=== PATIENT | female | born 1980 ===

== ENCOUNTER 2019-02-02 17:53 | Emergency (ER) | payer OTHER ==
--- NOTE | 2019-02-02 18:03 | Emergency Department Report ---
Blank Doc - Documentation Documentation: This is a 38-year-old female that presents with generalized pain. Patient conner maldonado has sickle cell and symptoms are similar to crisis. This initial assessment/diagnostic orders/clinical plan/treatment(s) is/are subject to change based on patient's health status, clinical progression and re- assessment by fellow clinical providers in the ED. Further treatment and workup at subsequent clinical providers discretion. Patient/guardians urged not to elope from the ED as their condition may be serious if not clinically assessed and managed. Initial orders include: 1- Patient sent to MAIN ED for further evaluation and treatment 2- labs 3- UA
[2019-02-02 18:27] LABS: Hematocrit 22.6 % (30.3-42.9); Hemoglobin 8.1 gm/dl (10.1-14.3); Mean Corpuscular HGB Conc 36 % (30-34); Platelet Count 185 K/mm3 (140-440); Red Blood Count 2.03 M/mm3 (3.65-5.03)
[2019-02-02 18:28] LABS: Mean Corpuscular Volume 112 fl (79-97); Red Cell Distribution Width 20.7 % (13.2-15.2)
[2019-02-02 18:37] LABS: BUN/Creatinine Ratio 27; Blood Urea Nitrogen 8 mg/dL (7-17); Calcium 8.6 mg/dL (8.4-10.2); Hemolysis Index 13
[2019-02-02 19:00] LABS: Basophils % (Manual) 0 % (0.0-1.8); Total Cells Counted 100
[2019-02-02] MEDS ORDERED: TORADOL IV ONE (20:46)
[2019-02-02] MEDS ORDERED: NACL 0.9% 1000 ML 1,000 ML IV ONE (20:46)
[2019-02-02] MEDS ORDERED: DILAUDID IV ONE ×2 (20:47→23:25)
--- NOTE | 2019-02-02 20:51 | Emergency Department Report ---
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 Patient reports generalized pain, especially in the legs, knees, hips. Also reports associated headache and mildly blurred vision. Patient states these symptoms are typical of her sickle cell crises. She says she takes Tylenol at home for mild pain, and Percocet for severe pain. Patient states he does not currently have a PCP or desulfurizer machine. Patient states that presently she contracted hepatitis C from one of her blood transfusions. Patient stated she has had multiple transfusions, the last of which was approximately 5 months ago. -: days(s) (1) Location: head, left, right, lower extremity Severity scale (0 -10): 10 Quality: aching Consistency: constant Improves with: none Associated Symptoms: headaches. denies: chest pain, cough, fever/chills, nausea/vomiting, shortness of breath - Related Data Previous Rx's Medication Instructions Recorded Last Taken Type Oxycodone HCl/Acetaminophen 1 each PO Q6HR PRN #10 tablet 02/03/19 Unknown Rx [Percocet 7.5/325 mg] Allergies Allergy/AdvReac Type Severity Reaction Status Date / Time No Known Allergies Allergy Unverified 02/02/19 18:01 ED Review of Systems ROS: Stated complaint: HEADACHE/EYES/ARMS Other details as noted in HPI Comment: All other systems reviewed and negative Constitutional: denies: chills, fever Respiratory: denies: shortness of breath Cardiovascular: denies: chest pain Gastrointestinal: denies: nausea, vomiting Musculoskeletal: arthralgia Neurological: headache ED Past Medical Hx - Past Medical History Hx Sickle Cell Disease: Yes Additional medical history: Hep C - Social History Smoking Status: Current Every Day Smoker Substance Use Type: Alcohol - Medications Home Medications: Home Medications Medication Instructions Recorded Confirmed Last Taken Type Oxycodone HCl/Acetaminophen 1 each PO Q6HR PRN #10 tablet 02/03/19 Unknown Rx [Percocet 7.5/325 mg] ED Physical Exam - General Limitations: Language Barrier General appearance: alert, in no apparent distress - Head Head exam: Present: atraumatic, normocephalic - Eye Eye exam: Present: normal appearance, scleral icterus (minimal) - ENT ENT exam: Present: mucous membranes moist - Neck Neck exam: Present: normal inspection - Respiratory Respiratory exam: Present: normal lung sounds bilaterally. Absent: respiratory distress - Cardiovascular Cardiovascular Exam: Present: regular rate, normal rhythm - GI/Abdominal GI/Abdominal exam: Present: soft. Absent: distended, tenderness - Extremities Exam Extremities exam: Present: normal inspection. Absent: pedal edema - Neurological Exam Neurological exam: Present: alert, oriented X3 - Psychiatric Psychiatric exam: Present: normal affect, normal mood - Skin Skin exam: Present: warm, dry, intact, normal color ED Course Vital Signs 02/02/19 02/02/19 02/02/19 18:02 21:22 21:48 Temperature 98.4 F 97.2 F L Pulse Rate 74 94 H Respiratory 16 14 19 Rate Blood Pressure 132/50 Blood Pressure 129/72 [Left] O2 Sat by Pulse 98 100 Oximetry 02/02/19 02/02/19 02/02/19 21:58 22:00 22:18 Temperature Pulse Rate 70 Respiratory 19 23 20 Rate Blood Pressure 106/45 Blood Pressure [Left] O2 Sat by Pulse 98 Oximetry 02/02/19 02/02/19 22:28 23:31 Temperature Pulse Rate Respiratory 20 20 Rate Blood Pressure Blood Pressure [Left] O2 Sat by Pulse Oximetry ED Medical Decision Making - Lab Data Result diagrams: 02/02/19 18:08 02/02/19 18:08 - Medical Decision Making - pt reports pain due to sickle cell - dilaudid given x 2, pain improved - Hb 8.1, no need for transfusion at this time - vitals normal - will give rx for percocet - advised hematology follow-up - Differential Diagnosis sickle cell crisis, anemia Critical care attestation.: If time is entered above; I have spent that time in minutes in the direct care of this critically ill patient, excluding procedure time. ED Disposition Clinical Impression: Sickle cell anemia with crisis Disposition: DC-01 TO HOME OR SELFCARE Is pt being admited?: No Condition: Stable Instructions: Sickle Cell Crisis (ED) Prescriptions: Oxycodone HCl/Acetaminophen [Percocet 7.5/325 mg] 1 each PO Q6HR PRN #10 tablet PRN Reason: Pain Referrals: ISA EMERY MD [Referring] - 3-5 Days KINSEY TURNER DO [Staff Physician] - 3-5 Days Time of Disposition: 23:35 Print Language: WELSH
[2019-02-02] MEDS ORDERED: DILAUDID ONE (23:19)
[2019-02-02] MEDS ORDERED: BENADRYL PO ONE ×2 (23:20→23:28)
[2019-02-02 23:25] VITALS: BP 106/45
[2019-02-02 23:45] LABS: Bilirubin,Urine NEG (Negative); Blood,Urine NEG (Negative); Color,Urine Yellow (Yellow); Protein,Urine <15 mg/dL mg/dL (Negative); WBC,Urine < 1.0 /HPF (0.0-6.0)
[2019-02-08 08:40] LABS: Anisocytosis 1+; Hypochromasia Few; Macrocytosis 1+; Sickle Cells 1+
[2019-02-08 08:41] LABS: Target Cells 1+
== END 2019-02-03 01:09 | disposition home or self-care (01) ==
LOC: ED 17:53
DX: D57.00 Hb-SS disease with crisis, unspecified (principal); F17.200 Nicotine dependence, unspecified, uncomplicated; Z86.19 Personal history of other infectious and parasitic diseases
CPT/HCPCS: 36415; 80048; 81001; 84703; 85007; 85025; 85045; 96374; 96375; 96376; 99283; J1170; J1885; J7030

== ENCOUNTER 2019-02-07 23:27 | Observation (INO) | payer SELFPAY ==
[2019-02-08] MEDS ORDERED: TORADOL IV ONE (04:42)
[2019-02-08] MEDS ORDERED: ZOFRAN IV ONE (04:42)
[2019-02-08] MEDS ORDERED: DILAUDID IV ONE (04:42)
--- NOTE | 2019-02-08 04:42 | Emergency Department Report ---
Blank Doc - Documentation Documentation: Patient medically screened. History of sickle cell unknown type presents with pain secondary to crisis. Patient complains of pain to bilateral knees, ankles, wrists, and head. Pain is rated 10/10 in intensity and constant. She was here on February 02 with pain secondary to crisis and prescribed Percocet 7.5/325 mg. Her pain has continued since recent ER visit but is unbearable and she has run out of pain medication since she was only prescribed 10 tablets. 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 She denies fever, cough, chest pain, or shortness of breath. CBC, CMP, reticulocyte count, test ordered IV fluid, Dilaudid, and Zofran ordered
[2019-02-08 04:47] LABS: Hematocrit 23.4 % (30.3-42.9); Hemoglobin 8.1 gm/dl (10.1-14.3); Mean Corpuscular HGB Conc 35 % (30-34); Platelet Count 192 K/mm3 (140-440); Red Blood Count 2.03 M/mm3 (3.65-5.03)
[2019-02-08 04:51] LABS: Mean Corpuscular Volume 116 fl (79-97); Red Cell Distribution Width 22.2 % (13.2-15.2)
[2019-02-08] MEDS ORDERED: D5NS 0.2% 1,000 ML IV SCH (05:00)
[2019-02-08] MEDS ORDERED: BENADRYL IV ONE (05:10)
[2019-02-08] MEDS ORDERED: BENADRYL ONE (05:10)
[2019-02-08 05:14] LABS: Alanine Aminotransferase 68 units/L (7-56); Albumin 3.7 g/dL (3.9-5); BUN/Creatinine Ratio 30; Blood Urea Nitrogen 12 mg/dL (7-17); Calcium 8.5 mg/dL (8.4-10.2); Hemolysis Index 52
[2019-02-08] MEDS ORDERED: NACL 0.9% 1000 ML 1,000 ML IV ONE ×2 (06:35→07:46)
--- NOTE | 2019-02-08 06:41 | Emergency Department Report ---
HPI - General Chief Complaint: Sickle Cell Crisis Time Seen by Provider: 02/08/19 06:04 - HPI HPI: 38-year-old female presents to the emergency department with complaint of a sickle cell pain crisis that she says is going on in both of her legs, a round the knees. The patient also has some mild epigastric and left-sided abdominal pain. The patient was seen for this here 1 week ago and was discharged home with some pain medication and a referral for primary care and hematology. She is not yet been able to make an appointment. She says that she has been taking the Percocet without much relief. She denies any fever, chest pain, shortness of breath. She has a history of hepatitis C secondary to an infected blood transfusion in the past. ED Past Medical Hx - Past Medical History Hx Sickle Cell Disease: Yes Additional medical history: Hep C - Social History Smoking Status: Current Some Day Smoker Substance Use Type: None - Medications Home Medications: Home Medications Medication Instructions Recorded Confirmed Last Taken Type Oxycodone HCl/Acetaminophen 1 each PO Q6HR PRN #10 tablet 02/03/19 02/08/19 Unknown Rx [Percocet 7.5/325 mg] RX: Folic Acid [Folvite] 1 mg PO QDAY 02/08/19 02/08/19 Unknown History ED Review of Systems ROS: Stated complaint: SICKLE CELL CRISIS Other details as noted in HPI Comment: All other systems reviewed and negative Constitutional: denies: chills, fever Eyes: denies: eye pain, vision change ENT: denies: ear pain, throat pain Respiratory: denies: cough, shortness of breath Cardiovascular: denies: chest pain, palpitations Gastrointestinal: abdominal pain. denies: nausea, vomiting Genitourinary: denies: dysuria, discharge Musculoskeletal: arthralgia, myalgia. denies: joint swelling Skin: denies: rash, lesions Neurological: denies: headache, weakness Physical Exam - Physical Exam Vital Signs: Vital Signs 02/08/19 02/08/19 02/08/19 04:03 04:15 05:00 Temperature 98.1 F Pulse Rate 72 61 69 Respiratory 16 13 10 L Rate Blood Pressure 102/46 99/38 103/36 Blood Pressure 99/38 [Left] O2 Sat by Pulse 99 100 97 Oximetry 02/08/19 05:04 Temperature Pulse Rate Respiratory 20 Rate Blood Pressure Blood Pressure [Left] O2 Sat by Pulse Oximetry Physical Exam: GENERAL: The patient is well-developed well-nourished. HEENT: Normocephalic. Atraumatic. Patient has moist mucous membranes. EYES: Extraocular motions are intact. NECK: Supple. Trachea is midline. CHEST/LUNGS: Clear to auscultation. There is no respiratory distress noted. HEART/CARDIOVASCULAR: Regular. There is no tachycardia. There is no obvious murmur. ABDOMEN: Abdomen is soft. There is epigastric and left upper quadrant abdominal tenderness to palpation. No guarding. Patient has normal bowel sounds. There is no abdominal distention. SKIN: Skin is warm and dry. NEURO: The patient is awake, alert, and oriented. The patient is cooperative. The patient has no focal neurologic deficits. The patient has normal speech. MUSCULOSKELETAL: There is no tenderness or deformity. There is no limitation r marilu of motion. There is no evidence of acute injury. ED Course Vital Signs 02/08/19 02/08/19 02/08/19 04:03 04:15 05:00 Temperature 98.1 F Pulse Rate 72 61 69 Respiratory 16 13 10 L Rate Blood Pressure 102/46 99/38 103/36 Blood Pressure 99/38 [Left] O2 Sat by Pulse 99 100 97 Oximetry 02/08/19 05:04 Temperature Pulse Rate Respiratory 20 Rate Blood Pressure Blood Pressure [Left] O2 Sat by Pulse Oximetry ED Medical Decision Making - Lab Data Result diagrams: 02/08/19 04:36 02/08/19 04:36 - Radiology Data Radiology results: report reviewed PROCEDURE: US ABDOMEN LIMITED TECHNIQUE: Grayscale and color Doppler ultrasound evaluation of the right upper quadrant HISTORY: abd pain, elevated bili and LFTs, hx of Hep C COMPARISONS: None FINDINGS: Grayscale and color Doppler ultrasound evaluation of the right upper abdomen Heterogeneous echotexture of the liver with mildly nodular contour. A focal echogenic lesion is present in the posterior right hepatic lobe measuring 2 x 1.3 x 1.5 cm. No intra or extra hepatic biliary ductal dilatation. The common duct measures approximately 5 millimeters in caliber. The gallbladder is incompletely distended and contains multiple echogenic subcentimeter foci with mixed posterior acoustic enhancement characteristics. Layering sludge may also be present. Gallbladder wall measures approximately 2 millimeters in thickness. No pericholecystic edema. Imaged portion of the pancreatic head is sonographically unremarkable. The remainder of the pancreas is not well seen secondary to overlying bowel gas. No abdominal ascites or free fluid in Rosales's pouch. The right kidney measures up to 10.3 cm in length and is without hydronephrosis or echogenic shadowing foci to suggest nephrolithiasis. IMPRESSION: Heterogeneous liver parenchyma and nodular contour are likely related to reported underlying hepatitis. A 2 cm echogenic lesion in the posterior right liver may be a hemangioma but is incompletely characterized on this exam. Follow-up multiphase liver CT or MRI recommended for additional evaluation. Layering sludge and/or subcentimeter stones in the gallbladder without additional findings of acute cholecystitis. This document is electronically signed by Karla Steele MD., February 08 2019 07:32:01 AM ET Transcribed By: DENITA Dictated By: KARLA STEELE MD Electronically Authenticated By: KARLA STEELE MD Signed Date/Time: 02/08/19 0734 - Medical Decision Making This patient presents to the emergency department with complaint of pain to the bilateral lower extremities consistent with her sickle cell pain crisis. She also has complaints of epigastric and left upper quadrant pain. She has a history of hepatitis C, along with her sickle cell. Her labs show anemia with a hemoglobin of 8.1, an elevated reticulocyte count of 16. She some elevated LFTs consistent with her hepatitis C. Ultrasound also appears consistent with her history of hepatitis C and otherwise does not show any acute process. The patient was given multiple liters of IV fluid resuscitation and she has had some transient hypotension. The patient was here about a week ago for the same sickle cell pain crisis and does not appear to have improved. For all these reasons, the patient will be admitted to the hospital for further evaluation and treatment and was accepted for admission by the hospitalist service. - Differential Diagnosis sickle cell anemia, hepatitis, pancreatitis, GERD Critical Care Time: No Critical care attestation.: If time is entered above; I have spent that time in minutes in the direct care of this critically ill patient, excluding procedure time. ED Disposition Clinical Impression: Sickle cell anemia with crisis Hypotension Qualifiers: Hypotension type: unspecified hypotension type Qualified Code(s): I95.9 - Hypotension, unspecified Abdominal pain Qualifiers: Abdominal location: left upper quadrant Qualified Code(s): R10.12 - Left upper quadrant pain Disposition: -09 OP ADMIT IP TO THIS HOSP Is pt being admited?: Yes Condition: Fair Time of Disposition: 10:21
--- NOTE | 2019-02-08 07:34 | Ultrasound Report ---
PROCEDURE: US ABDOMEN LIMITED TECHNIQUE: Grayscale and color Doppler ultrasound evaluation of the right upper quadrant HISTORY: abd pain, elevated bili and LFTs, hx of Hep C COMPARISONS: None FINDINGS: Grayscale and color Doppler ultrasound evaluation of the right upper abdomen Heterogeneous echotexture of the liver with mildly nodular contour. A focal echogenic lesion is prese nt in the posterior right hepatic lobe measuring 2 x 1.3 x 1.5 cm. No intra or extra hepatic biliary ductal dilatation. The common duct measures approximately 5 millimeters in caliber. The gallbladder is incompletely distended and contains multiple echogenic subcentimeter foci with mix ed posterior acoustic enhancement characteristics. Layering sludge may also be present. Gallbladder w all measures approximately 2 millimeters in thickness. No pericholecystic edema. Imaged portion of the pancreatic head is sonographically unremarkable. The remainder of the pancreas is not well seen secondary to overlying bowel gas. No abdominal ascites or free fluid in Rosales's pouch. The right kidney measures up to 10.3 cm in l ength and is without hydronephrosis or echogenic shadowing foci to suggest nephrolithiasis. IMPRESSION: Heterogeneous liver parenchyma and nodular contour are likely related to reported underlying hepatiti s. A 2 cm echogenic lesion in the posterior right liver may be a hemangioma but is incompletely kiran cterized on this exam. Follow-up multiphase liver CT or MRI recommended for additional evaluation. Layering sludge and/or subcentimeter stones in the gallbladder without additional findings of acute c holecystitis. This document is electronically signed by Pilo Perez MD., February 08 2019 07:32:01 AM ET
[2019-02-08 08:24] LABS: Total Cells Counted 100
[2019-02-08 08:33] LABS: Anisocytosis 1+; Poikilocytosis 2+; Sickle Cells 2+; Target Cells Few
[2019-02-08 08:35] LABS: Platelet Estimate Consistent w Auto
--- NOTE | 2019-02-08 11:54 | History and Physical Report ---
History of Present Illness Date of examination: 02/08/19 Date of admission: 02/08/19 10:22 Chief complaint: Generalized body aches History of present illness: 38 year old female with past medical history significant for hepatitis C, sickle cell anemia presented to the emergency department complaining of generalized body aches for one week. Patient said the pain is worse in her joints but denied any chest pain, dysuria, fever, chills, cough. Patient was presented to emergency department a week ago and Percocet was given and discharged home. Patient didn't show any improvement and presented back again this morning. Patient said she has history of sickle cell anemia and had many blood transfusions and was taking folic acid at home but is now hydroxyurea. Her cousins have sickle cell anemia. Patient is from [place] REVIEW OF SYSTEMS: GENERAL: no weight change, no fatigue, no fever HEAD: no head ache EYES: no blurry vision, no acute visual loss EARS: no hearing loss, no discharge, no earache NOSE: no stuffiness, no sneezing, no discharge MOUTH, THROAT AND NECK: no bleeding gums, no sore throat, no swollen neck CARDIAC: no palpitations, no dyspnea on exertion, no orthopnea, no PND, no edema, no chest pain RESPIRATORY: no shortness of breath, no wheeze, no cough, no sputum, no hemoptysis, no asthma GI: no decreased appetite, no nausea, no vomiting, no dysphagia, no diarrhea, no constipation, no abdominal pain URINARY: no change in frequency, no urgency, no polyuria, no hematuria, no incontinence MUSCULOSKELETAL: no muscle weakness, no pain, no joint stiffness NEUROLOGIC: no loss of sensation/numbness, no tingling, no tremors, no weakness/paralysis HEMATOLOGIC: no easy bruising SKIN: no rashes ENDOCRINE: no heat/cold intolerance, no polyuria, no polydipsia, no thyroid problems, no diabetes PSYCHIATRIC: no anxiety, no depression, no suicidal ideations Past History Past Medical History: other (hepatitis C, sickle cell anemia) Past Surgical History: (2) Social history: smoking (1 cigarettes a day), alcohol abuse (occasionally), full code. denies: prescription drug abuse, IV drug use Family history: other (sickle cell in her cousins) Medications and Allergies Allergies Allergy/AdvReac Type Severity Reaction Status Date / Time No Known Allergies Allergy Unverified 02/02/19 18:01 Home Medications Medication Instructions Recorded Confirmed Last Taken Type Oxycodone HCl/Acetaminophen 1 each PO Q6HR PRN #10 tablet 02/03/19 02/08/19 Unknown Rx [Percocet 7.5/325 mg] Folic Acid [Folvite] 1 mg PO QDAY 02/08/19 02/08/19 Unknown History Active Meds: Active Medications Hydromorphone HCl (Dilaudid) 1 mg IV Q4H PRN PRN Reason: Pain , Severe (7-10) Dextrose/Sodium Chloride (D5ns 0.2%) 1,000 mls @ 250 mls/hr IV DIRECT COLBY Last Admin: 02/08/19 04:50 Dose: 250 mls/hr Documented by: Sodium Chloride (Nacl 0.9% 1000 Ml) 1,000 mls @ 999 mls/hr IV DIRECT COLBY Sodium Chloride (Nacl 0.45% 1000 Ml) 1,000 mls @ 100 mls/hr IV DIRECT COLBY Exam - Physical Exam Narrative exam: Not in cardiopulmonary distress. The patient appeared well nourished and normally developed. Vital signs as documented. Head exam is unremarkable. No scleral icterus . Neck is without jugular venous distension, thyromegaly, or carotid bruits. Lungs are clear to auscultation. Cardiac exam reveals regular rate and Rhythm. First and second heart sounds normal. No murmurs, rubs or gallops. Abdominal exam reveals normal bowel sounds, no masses, no organomegaly and no aortic enlargement. Extremities are nonedematous and both femoral and pedal pulses are normal. 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 No focal weakness. - Constitutional Vitals: Temp Pulse Resp BP Pulse Ox 98.1 F 63 13 87/38 92 02/08/19 04:15 02/08/19 11:00 02/08/19 11:00 02/08/19 11:00 02/08/19 11:00 Results - Labs CBC & Chem 7: 02/08/19 04:36 02/08/19 04:36 Labs: Laboratory Last Values WBC 9.3 K/mm3 (4.5-11.0) 02/08/19 04:36 RBC 2.03 M/mm3 (3.65-5.03) L 02/08/19 04:36 Hgb 8.1 gm/dl (10.1-14.3) L 02/08/19 04:36 Hct 23.4 % (30.3-42.9) L 02/08/19 04:36 MCV 116 fl (79-97) H 02/08/19 04:36 MCH 40 pg (28-32) H 02/08/19 04:36 MCHC 35 % (30-34) H 02/08/19 04:36 RDW 22.2 % (13.2-15.2) H 02/08/19 04:36 Plt Count 192 K/mm3 (140-440) 02/08/19 04:36 Lymph # Supervisor Wet End 02/08/19 04:36 Add Manual Diff Complete 02/08/19 04:36 Total Counted 100 02/08/19 04:36 Seg Neutrophils % Supervisor Wet End 02/08/19 04:36 Seg Neuts % (Manual) 35.0 % (40.0-70.0) L 02/08/19 04:36 Band Neutrophils % 0 % 02/08/19 04:36 Lymphocytes % (Manual) 54.0 % (13.4-35.0) H 02/08/19 04:36 Reactive Lymphs % (Man) 0 % 02/08/19 04:36 Monocytes % (Manual) 6.0 % (0.0-7.3) 02/08/19 04:36 Eosinophils % (Manual) 4.0 % (0.0-4.3) 02/08/19 04:36 Basophils % (Manual) 1.0 % (0.0-1.8) 02/08/19 04:36 Metamyelocytes % 0 % 02/08/19 04:36 Myelocytes % 0 % 02/08/19 04:36 Promyelocytes % 0 % 02/08/19 04:36 Blast Cells % 0 % 02/08/19 04:36 Nucleated RBC % 14.0 % (0.0-0.9) H 02/08/19 04:36 Seg Neutrophils # Man 3.3 K/mm3 (1.8-7.7) 02/08/19 04:36 Band Neutrophils # 0.0 K/mm3 02/08/19 04:36 Lymphocytes # (Manual) 5.0 K/mm3 (1.2-5.4) 02/08/19 04:36 Abs React Lymphs (Man) 0.0 K/mm3 02/08/19 04:36 Monocytes # (Manual) 0.6 K/mm3 (0.0-0.8) 02/08/19 04:36 Eosinophils # (Manual) 0.4 K/mm3 (0.0-0.4) 02/08/19 04:36 Basophils # (Manual) 0.1 K/mm3 (0.0-0.1) 02/08/19 04:36 Metamyelocytes # 0.0 K/mm3 02/08/19 04:36 Myelocytes # 0.0 K/mm3 02/08/19 04:36 Promyelocytes # 0.0 K/mm3 02/08/19 04:36 Blast Cells # 0.0 K/mm3 02/08/19 04:36 WBC Morphology Not Reportable 02/08/19 04:36 Hypersegmented Neuts Not Reportable 02/08/19 04:36 Hyposegmented Neuts Not Reportable 02/08/19 04:36 Hypogranular Neuts Not Reportable 02/08/19 04:36 Smudge Cells Not Reportable 02/08/19 04:36 Toxic Granulation Not Reportable 02/08/19 04:36 Toxic Vacuolation Not Reportable 02/08/19 04:36 Dohle Bodies Not Reportable 02/08/19 04:36 Pelger-Huet Anomaly Not Reportable 02/08/19 04:36 Milo Rods Not Reportable 02/08/19 04:36 Platelet Estimate Consistent w auto 02/08/19 04:36 Clumped Platelets Not Reportable 02/08/19 04:36 Plt Clumps, EDTA Not Reportable 02/08/19 04:36 Large Platelets Not Reportable 02/08/19 04:36 Giant Platelets Not Reportable 02/08/19 04:36 Platelet Satelliting Not Reportable 02/08/19 04:36 Plt Morphology Comment Not Reportable 02/08/19 04:36 RBC Morphology Not Reportable 02/08/19 04:36 Dimorphic RBCs Not Reportable 02/08/19 04:36 Polychromasia 2+ 02/08/19 04:36 Hypochromasia Not Reportable 02/08/19 04:36 Poikilocytosis 2+ 02/08/19 04:36 Anisocytosis 1+ 02/08/19 04:36 Microcytosis Rare 02/08/19 04:36 Macrocytosis Not Reportable 02/08/19 04:36 Spherocytes Not Reportable 02/08/19 04:36 Pappenheimer Bodies Not Reportable 02/08/19 04:36 Sickle Cells 2+ 02/08/19 04:36 Target Cells Few 02/08/19 04:36 Tear Drop Cells Not Reportable 02/08/19 04:36 Ovalocytes Not Reportable 02/08/19 04:36 Helmet Cells Not Reportable 02/08/19 04:36 [place] Bodies Not Reportable 02/08/19 04:36 [place] Rings Not Reportable 02/08/19 04:36 [place] Cells Not Reportable 02/08/19 04:36 Bite Cells Not Reportable 02/08/19 04:36 Crenated Cell Not Reportable 02/08/19 04:36 Elliptocytes Not Reportable 02/08/19 04:36 Acanthocytes (Spur) Not Reportable 02/08/19 04:36 Rouleaux Not Reportable 02/08/19 04:36 Hemoglobin C Crystals Not Reportable 02/08/19 04:36 Schistocytes Not Reportable 02/08/19 04:36 Malaria parasites Not Reportable 02/08/19 04:36 Percent Retic 16.49 % (0.78-2.58) H 02/08/19 04:36 Sacha Bodies Not Reportable 02/08/19 04:36 Hem Pathologist Commnt No 02/08/19 04:36 Sodium 136 mmol/L (137-145) L 02/08/19 04:36 Potassium 4.7 mmol/L (3.6-5.0) 02/08/19 04:36 Chloride 104.7 mmol/L (98-107) 02/08/19 04:36 Carbon Dioxide 20 mmol/L (22-30) L 02/08/19 04:36 Anion Gap 16 mmol/L 02/08/19 04:36 BUN 12 mg/dL (7-17) 02/08/19 04:36 Creatinine 0.4 mg/dL (0.7-1.2) L 02/08/19 04:36 Estimated GFR > 60 ml/min 02/08/19 04:36 BUN/Creatinine Ratio 30 % 02/08/19 04:36 Glucose 90 mg/dL (65-100) 02/08/19 04:36 Calcium 8.5 mg/dL (8.4-10.2) 02/08/19 04:36 Total Bilirubin 2.70 mg/dL (0.1-1.2) H 02/08/19 04:36 AST 127 units/L (5-40) H 02/08/19 04:36 ALT 68 units/L (7-56) H 02/08/19 04:36 Alkaline Phosphatase 138 units/L (35-129) H 02/08/19 04:36 Troponin T < 0.010 ng/mL (0.00-0.029) 02/08/19 09:34 Total Protein 7.0 g/dL (6.3-8.2) 02/08/19 04:36 Albumin 3.7 g/dL (3.9-5) L 02/08/19 04:36 Albumin/Globulin Ratio 1.1 % 02/08/19 04:36 HCG, Qual Negative (Negative) 02/08/19 04:36 - Imaging and Cardiology EKG: image reviewed (no ST elevation [place]) Assessment and Plan Assessment and plan: Sickle cell pain crisis, due to dehydration - Pain control with IV Dilaudid and PO percocet - IV fluids - Continue folic acid Hypotension - Likely due to dehydration - Continue IV fluids Chronic C - Advised to have follow-up as an outpatient DVT prophylaxis - Lovenox Disposition - Admit to medical floor Advance Directives: Yes VTE prophylaxis?: Chemical Plan of care discussed with patient/family: Yes
[2019-02-08] MEDS ORDERED: NACL 0.45% 1000 ML 1,000 ML IV SCH (12:00)
[2019-02-08] MEDS ORDERED: NACL 0.9% 1000 ML 1,000 ML IV SCH (12:00)
[2019-02-08] MEDS ORDERED: PERCOCET 5/325 ONE (13:03)
[2019-02-08] MEDS: PERCOCET 5/325 PO PRN ×2 (13:06→18:47)
[2019-02-08] MEDS: LOVENOX SUB-Q SCH (21:09)
[2019-02-08] MEDS: DILAUDID IV PRN (21:09)
[2019-02-08] MEDS: NACL 0.9% 1000 ML 1,000 ML IV SCH (21:14)
[2019-02-09] MEDS: TORADOL IV PRN (02:49)
[2019-02-09] MEDS: BENADRYL PO PRN ×2 (04:14→21:57)
[2019-02-09] MEDS: DILAUDID IV PRN ×3 (04:14→21:52)
[2019-02-09] MEDS: ZOFRAN IV PRN ×2 (04:16→12:47)
[2019-02-09 05:52] LABS: Hematocrit 20.9 % (30.3-42.9); Hemoglobin 7.5 gm/dl (10.1-14.3); Mean Corpuscular HGB Conc 36 % (30-34); Platelet Count 133 K/mm3 (140-440); Red Blood Count 1.86 M/mm3 (3.65-5.03)
[2019-02-09 06:01] LABS: Mean Corpuscular Volume 112 fl (79-97); Red Cell Distribution Width 20.1 % (13.2-15.2)
[2019-02-09 06:47] LABS: Basophils % (Manual) 0 % (0.0-1.8); Total Cells Counted 100
[2019-02-09 06:50] LABS: Anisocytosis 1+; Macrocytosis 1+; Poikilocytosis 2+
[2019-02-09 06:51] LABS: Giant Platelets Few; Platelet Estimate Consistent w Auto; Sickle Cells 1+; Target Cells Few
[2019-02-09] MEDS: NACL 0.9% 1000 ML 1,000 ML IV SCH ×2 (07:21→17:39)
--- NOTE | 2019-02-09 14:43 | Progress Note ---
Assessment and Plan Assessment and plan: Sickle cell pain crisis, due to dehydration - Pain control with IV Dilaudid and PO percocet - Continue IV fluids - Continue folic acid Hypotension - Likely due to dehydration - Improved - Continue IV fluids Chronic C - Advised to have follow-up as an outpatient DVT prophylaxis - Lovenox Disposition - continue inpatient care. History Interval history: Patient was seen and evaluated at the bedside, patient still complaining of pain, her appetite is poor. Hospitalist Physical - Physical exam Narrative exam: Not in cardiopulmonary distress. The patient appeared well nourished and normally developed. Vital signs as documented. Head exam is unremarkable. No scleral icterus . Neck is without jugular venous distension, thyromegaly, or carotid bruits. Lungs are clear to auscultation. Cardiac exam reveals regular rate and Rhythm. First and second heart sounds nor mal. No murmurs, rubs or gallops. Abdominal exam reveals normal bowel sounds, no masses, no organomegaly and no aortic enlargement. Extremities are nonedematous and both femoral and pedal pulses are normal. 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 No focal weakness. - Constitutional Vitals: Temp Pulse Resp BP Pulse Ox 98.7 F 85 15 102/52 90 02/09/19 12:22 02/09/19 12:22 02/09/19 12:22 02/09/19 12:22 02/09/19 12:22 Results - Labs CBC & Chem 7: 02/09/19 05:00 02/08/19 04:36 Labs: Laboratory Last Values WBC 7.4 K/mm3 (4.5-11.0) 02/09/19 05:00 RBC 1.86 M/mm3 (3.65-5.03) L 02/09/19 05:00 Hgb 7.5 gm/dl (10.1-14.3) L 02/09/19 05:00 Hct 20.9 % (30.3-42.9) L 02/09/19 05:00 MCV 112 fl (79-97) H 02/09/19 05:00 MCH 40 pg (28-32) H 02/09/19 05:00 MCHC 36 % (30-34) H 02/09/19 05:00 RDW 20.1 % (13.2-15.2) H 02/09/19 05:00 Plt Count 133 K/mm3 (140-440) L 02/09/19 05:00 Lymph # Ultrasonic Seaming Machine Operator 02/08/19 04:36 Add Manual Diff Complete 02/09/19 05:00 Total Counted 100 02/09/19 05:00 Seg Neutrophils % Ultrasonic Seaming Machine Operator 02/09/19 05:00 Seg Neuts % (Manual) 26.0 % (40.0-70.0) L 02/09/19 05:00 Band Neutrophils % 13.0 % 02/09/19 05:00 Lymphocytes % (Manual) 40.0 % (13.4-35.0) H 02/09/19 05:00 Reactive Lymphs % (Man) 0 % 02/09/19 05:00 Monocytes % (Manual) 12.0 % (0.0-7.3) H 02/09/19 05:00 Eosinophils % (Manual) 9.0 % (0.0-4.3) H 02/09/19 05:00 Basophils % (Manual) 0 % (0.0-1.8) 02/09/19 05:00 Metamyelocytes % 0 % 02/09/19 05:00 Myelocytes % 0 % 02/09/19 05:00 Promyelocytes % 0 % 02/09/19 05:00 Blast Cells % 0 % 02/09/19 05:00 Nucleated RBC % 18.0 % (0.0-0.9) H 02/09/19 05:00 Seg Neutrophils # Man 0.0 K/mm3 (1.8-7.7) L 02/09/19 05:00 Band Neutrophils # 0.0 K/mm3 02/09/19 05:00 Lymphocytes # (Manual) 0.0 K/mm3 (1.2-5.4) L 02/09/19 05:00 Abs React Lymphs (Man) 0.0 K/mm3 02/09/19 05:00 Monocytes # (Manual) 0.0 K/mm3 (0.0-0.8) 02/09/19 05:00 Eosinophils # (Manual) 0.0 K/mm3 (0.0-0.4) 02/09/19 05:00 Basophils # (Manual) 0.0 K/mm3 (0.0-0.1) 02/09/19 05:00 Metamyelocytes # 0.0 K/mm3 02/09/19 05:00 Myelocytes # 0.0 K/mm3 02/09/19 05:00 Promyelocytes # 0.0 K/mm3 02/09/19 05:00 Blast Cells # 0.0 K/mm3 02/09/19 05:00 WBC Morphology Not Reportable 02/09/19 05:00 Hypersegmented Neuts Not Reportable 02/09/19 05:00 Hyposegmented Neuts Not Reportable 02/09/19 05:00 Hypogranular Neuts Not Reportable 02/09/19 05:00 Smudge Cells Not Reportable 02/09/19 05:00 Toxic Granulation Not Reportable 02/09/19 05:00 Toxic Vacuolation Not Reportable 02/09/19 05:00 Dohle Bodies Not Reportable 02/09/19 05:00 Pelger-Huet Anomaly Not Reportable 02/09/19 05:00 Milo Rods Not Reportable 02/09/19 05:00 Platelet Estimate Consistent w auto 02/09/19 05:00 Clumped Platelets Not Reportable 02/09/19 05:00 Plt Clumps, EDTA Not Reportable 02/09/19 05:00 Large Platelets Not Reportable 02/09/19 05:00 Giant Platelets Few 02/09/19 05:00 Platelet Satelliting Not Reportable 02/09/19 05:00 Plt Morphology Comment Not Reportable 02/09/19 05:00 RBC Morphology Not Reportable 02/09/19 05:00 Dimorphic RBCs Not Reportable 02/09/19 05:00 Polychromasia 1+ 02/09/19 05:00 Hypochromasia Not Reportable 02/09/19 05:00 Poikilocytosis 2+ 02/09/19 05:00 Anisocytosis 1+ 02/09/19 05:00 Microcytosis Not Reportable 02/09/19 05:00 Macrocytosis 1+ 02/09/19 05:00 Spherocytes Not Reportable 02/09/19 05:00 Pappenheimer Bodies Not Reportable 02/09/19 05:00 Sickle Cells 1+ 02/09/19 05:00 Target Cells Few 02/09/19 05:00 Tear Drop Cells Not Reportable 02/09/19 05:00 Ovalocytes Not Reportable 02/09/19 05:00 Helmet Cells Not Reportable 02/09/19 05:00 Garces-[place] Bodies Not Reportable 02/09/19 05:00 [place] Rings Not Reportable 02/09/19 05:00 Phil Cells Not Reportable 02/09/19 05:00 Bite Cells Not Reportable 02/09/19 05:00 Crenated Cell Not Reportable 02/09/19 05:00 Elliptocytes 1+ 02/09/19 05:00 Acanthocytes (Spur) Not Reportable 02/09/19 05:00 Rouleaux Not Reportable 02/09/19 05:00 Hemoglobin C Crystals Not Reportable 02/09/19 05:00 Schistocytes Not Reportable 02/09/19 05:00 Malaria parasites Not Reportable 02/09/19 05:00 Percent Retic 16.49 % (0.78-2.58) H 02/08/19 04:36 Sacha Bodies Not Reportable 02/09/19 05:00 Hem Pathologist Commnt No 02/09/19 05:00 Sodium 136 mmol/L (137-145) L 02/08/19 04:36 Potassium 4.7 mmol/L (3.6-5.0) 02/08/19 04:36 Chloride 104.7 mmol/L (98-107) 02/08/19 04:36 Carbon Dioxide 20 mmol/L (22-30) L 02/08/19 04:36 Anion Gap 16 mmol/L 02/08/19 04:36 BUN 12 mg/dL (7-17) 02/08/19 04:36 Creatinine 0.4 mg/dL (0.7-1.2) L 02/08/19 04:36 Estimated GFR > 60 ml/min 02/08/19 04:36 BUN/Creatinine Ratio 30 % 02/08/19 04:36 Glucose 90 mg/dL (65-100) 02/08/19 04:36 Calcium 8.5 mg/dL (8.4-10.2) 02/08/19 04:36 Total Bilirubin 2.70 mg/dL (0.1-1.2) H 02/08/19 04:36 AST 127 units/L (5-40) H 02/08/19 04:36 ALT 68 units/L (7-56) H 02/08/19 04:36 Alkaline Phosphatase 138 units/L (35-129) H 02/08/19 04:36 Troponin T < 0.010 ng/mL (0.00-0.029) 02/08/19 09:34 Total Protein 7.0 g/dL (6.3-8.2) 02/08/19 04:36 Albumin 3.7 g/dL (3.9-5) L 02/08/19 04:36 Albumin/Globulin Ratio 1.1 % 02/08/19 04:36 HCG, Qual Negative (Negative) 02/08/19 04:36 Active Medications - Current Medications Current Medications: Generic Name Dose Route Start Last Admin Trade Name Freq PRN Reason Stop Dose Admin Diphenhydramine HCl 25 mg 02/09/19 03:03 02/09/19 04:14 Benadryl PO 25 mg Q6H PRN Administration Itching Enoxaparin Sodium 40 mg 02/08/19 22:00 02/08/19 21:09 Lovenox SUB-Q 40 mg QDAY@2200 COLBY Administration Hydromorphone HCl 1 mg 02/08/19 11:47 02/09/19 11:50 Dilaudid IV 1 mg Q4H PRN Administration Pain , Severe (7-10) Sodium Chloride 1,000 mls @ 999 mls/hr 02/08/19 12:00 Nacl 0.9% 1000 Ml IV DIRECT COLBY Sodium Chloride 1,000 mls @ 100 mls/hr 02/08/19 21:00 02/09/19 07:21 Nacl 0.9% 1000 Ml IV 100 mls/hr DIRECT COLBY Administration Ketorolac Tromethamine 30 mg 02/08/19 20:32 02/09/19 02:49 Toradol IV 02/13/19 20:31 30 mg Q6H PRN Administration Pain, Moderate (4-6) Ondansetron HCl 4 mg 02/09/19 03:04 02/09/19 12:47 Zofran IV 4 mg Q8H PRN Administration Nausea And Vomiting Oxycodone/Acetaminophen 2 tab 02/08/19 12:30 02/08/19 18:47 Percocet 5/325 PO 2 tab Q6H PRN Administration Pain, Moderate (4-6)
[2019-02-09] MEDS: PERCOCET 5/325 PO PRN (15:38)
[2019-02-09] MEDS: LOVENOX SUB-Q SCH (21:51)
[2019-02-10] MEDS: PERCOCET 5/325 PO PRN (02:43)
[2019-02-10] MEDS: NACL 0.9% 1000 ML 1,000 ML IV SCH ×2 (06:50→15:42)
[2019-02-10] MEDS: TORADOL IV PRN ×2 (06:50→17:05)
[2019-02-10 07:12] LABS: Hemoglobin 6.3 gm/dl (10.1-14.3); Mean Corpuscular HGB Conc 35 % (30-34); Platelet Count 171 K/mm3 (140-440); Red Blood Count 1.59 M/mm3 (3.65-5.03)
[2019-02-10 07:15] LABS: Hematocrit 18.1 % (30.3-42.9); Mean Corpuscular Volume 114 fl (79-97)
[2019-02-10] MEDS ORDERED: NACL 0.9% 500 ML 500 ML IV NR ×3 (07:19→16:16)
[2019-02-10] MEDS ORDERED: PERCOCET 5/325 PO PRN (07:19)
[2019-02-10 07:38] LABS: Alanine Aminotransferase 56 units/L (7-56); Albumin 3.2 g/dL (3.9-5); BUN/Creatinine Ratio 20; Blood Urea Nitrogen 6 mg/dL (7-17); Calcium 7.6 mg/dL (8.4-10.2); Hemolysis Index 70
[2019-02-10 08:30] LABS: Hematocrit 16.5 % (30.3-42.9); Hemoglobin 5.8 gm/dl (10.1-14.3)
[2019-02-10 08:50] LABS: Anisocytosis 2+; Poikilocytosis 2+; Total Cells Counted 100
[2019-02-10 08:51] LABS: Ovalocytes 1+; Platelet Estimate Consistent w Auto; Sickle Cells 1+; Target Cells Few
--- NOTE | 2019-02-10 11:16 | Progress Note ---
Assessment and Plan Assessment and plan: Sickle cell pain crisis, likely due to dehydration - Pain control, patient was sleepy and I d/cayden dilaudid, continue with percocet - Continue IV fluids - Continue folic acid Sickle cell anemia - Hemoglobin dropped to 5.8 this morning partly dilutional - Will transfuse him 2 units of blood, blood bank have to get the blood form [facility] because patient has multiple transfusions Hypotension - Likely due to dehydration - Improved - Continue IV fluids Chronic C - Advised to have follow-up as an outpatient DVT prophylaxis - Lovenox Disposition - continue inpatient care. History Interval history: Patient was seen and evaluated at the bedside, patient still complaining headache, patient was sleepy. Hospitalist Physical - Physical exam Narrative exam: Not in cardiopulmonary distress. The patient appeared well nourished and normally developed. Vital signs as documented. Head exam is unremarkable. No scleral icterus . Neck is without jugular venous distension, thyromegaly, or carotid bruits. Lungs are clear to auscultation. Cardiac exam reveals regular rate and Rhythm. Abdominal exam reveals normal bowel sounds. Extremities are nonedematous and both femoral and pedal pulses are normal. 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 No focal weakness. - Constitutional Vitals: Temp Pulse Resp BP Pulse Ox 98.5 F 73 16 99/46 90 02/10/19 05:47 02/10/19 05:47 02/10/19 05:47 02/10/19 05:47 02/10/19 05:47 Results - Labs CBC & Chem 7: 02/10/19 08:12 02/10/19 06:54 Labs: Laboratory Last Values WBC 8.0 K/mm3 (4.5-11.0) 02/10/19 06:54 RBC 1.59 M/mm3 (3.65-5.03) L 02/10/19 06:54 Hgb 5.8 gm/dl (10.1-14.3) L* 02/10/19 08:12 Hct 16.5 % (30.3-42.9) L* 02/10/19 08:12 MCV 114 fl (79-97) H 02/10/19 06:54 MCH 39 pg (28-32) H 02/10/19 06:54 MCHC 35 % (30-34) H 02/10/19 06:54 RDW 23.0 % (13.2-15.2) H 02/10/19 06:54 Plt Count 171 K/mm3 (140-440) 02/10/19 06:54 Lymph # Casket Liner 02/08/19 04:36 Add Manual Diff Complete 02/10/19 06:54 Total Counted 100 02/10/19 06:54 Seg Neutrophils % Casket Liner 02/10/19 06:54 Seg Neuts % (Manual) 39.0 % (40.0-70.0) L 02/10/19 06:54 Band Neutrophils % 0 % 02/10/19 06:54 Lymphocytes % (Manual) 46.0 % (13.4-35.0) H 02/10/19 06:54 Reactive Lymphs % (Man) 2.0 % 02/10/19 06:54 Monocytes % (Manual) 9.0 % (0.0-7.3) H 02/10/19 06:54 Eosinophils % (Manual) 3.0 % (0.0-4.3) 02/10/19 06:54 Basophils % (Manual) 1.0 % (0.0-1.8) 02/10/19 06:54 Metamyelocytes % 0 % 02/10/19 06:54 Myelocytes % 0 % 02/10/19 06:54 Promyelocytes % 0 % 02/10/19 06:54 Blast Cells % 0 % 02/10/19 06:54 Nucleated RBC % 17.0 % (0.0-0.9) H 02/10/19 06:54 Seg Neutrophils # Man 0.0 K/mm3 (1.8-7.7) L 02/10/19 06:54 Band Neutrophils # 0.0 K/mm3 02/10/19 06:54 Lymphocytes # (Manual) 0.0 K/mm3 (1.2-5.4) L 02/10/19 06:54 Abs React Lymphs (Man) 0.0 K/mm3 02/10/19 06:54 Monocytes # (Manual) 0.0 K/mm3 (0.0-0.8) 02/10/19 06:54 Eosinophils # (Manual) 0.0 K/mm3 (0.0-0.4) 02/10/19 06:54 Basophils # (Manual) 0.0 K/mm3 (0.0-0.1) 02/10/19 06:54 Metamyelocytes # 0.0 K/mm3 02/10/19 06:54 Myelocytes # 0.0 K/mm3 02/10/19 06:54 Promyelocytes # 0.0 K/mm3 02/10/19 06:54 Blast Cells # 0.0 K/mm3 02/10/19 06:54 WBC Morphology Not Reportable 02/10/19 06:54 Hypersegmented Neuts Not Reportable 02/10/19 06:54 Hyposegmented Neuts Not Reportable 02/10/19 06:54 Hypogranular Neuts Not Reportable 02/10/19 06:54 Smudge Cells Not Reportable 02/10/19 06:54 Toxic Granulation Not Reportable 02/10/19 06:54 Toxic Vacuolation Not Reportable 02/10/19 06:54 Dohle Bodies Not Reportable 02/10/19 06:54 Pelger-Huet Anomaly Not Reportable 02/10/19 06:54 Milo Rods Not Reportable 02/10/19 06:54 Platelet Estimate Consistent w auto 02/10/19 06:54 Clumped Platelets Not Reportable 02/10/19 06:54 Plt Clumps, EDTA Not Reportable 02/10/19 06:54 Large Platelets Not Reportable 02/10/19 06:54 Giant Platelets Not Reportable 02/10/19 06:54 Platelet Satelliting Not Reportable 02/10/19 06:54 Plt Morphology Comment Not Reportable 02/10/19 06:54 RBC Morphology Not Reportable 02/10/19 06:54 Dimorphic RBCs Not Reportable 02/10/19 06:54 Polychromasia 1+ 02/10/19 06:54 Hypochromasia Not Reportable 02/10/19 06:54 Poikilocytosis 2+ 02/10/19 06:54 Anisocytosis 2+ 02/10/19 06:54 Microcytosis Not Reportable 02/10/19 06:54 Macrocytosis Not Reportable 02/10/19 06:54 Spherocytes Not Reportable 02/10/19 06:54 Pappenheimer Bodies Not Reportable 02/10/19 06:54 Sickle Cells 1+ 02/10/19 06:54 Target Cells Few 02/10/19 06:54 Tear Drop Cells Not Reportable 02/10/19 06:54 Ovalocytes 1+ 02/10/19 06:54 Helmet Cells Not Reportable 02/10/19 06:54 [place] Bodies Not Reportable 02/10/19 06:54 [place] Rings Not Reportable 02/10/19 06:54 Phil Cells Not Reportable 02/10/19 06:54 Bite Cells Not Reportable 02/10/19 06:54 Crenated Cell Not Reportable 02/10/19 06:54 Elliptocytes Few 02/10/19 06:54 Acanthocytes (Spur) Not Reportable 02/10/19 06:54 Rouleaux Not Reportable 02/10/19 06:54 Hemoglobin C Crystals Not Reportable 02/10/19 06:54 Schistocytes Not Reportable 02/10/19 06:54 Malaria parasites Not Reportable 02/10/19 06:54 Percent Retic 16.49 % (0.78-2.58) H 02/08/19 04:36 Sacha Bodies Not Reportable 02/10/19 06:54 Hem Pathologist Commnt No 02/10/19 06:54 Sodium 137 mmol/L (137-145) 02/10/19 06:54 Potassium 4.7 mmol/L (3.6-5.0) 02/10/19 06:54 Chloride 107.6 mmol/L (98-107) H 02/10/19 06:54 Carbon Dioxide 19 mmol/L (22-30) L 02/10/19 06:54 Anion Gap 15 mmol/L 02/10/19 06:54 BUN 6 mg/dL (7-17) L 02/10/19 06:54 Creatinine 0.3 mg/dL (0.7-1.2) L 02/10/19 06:54 Estimated GFR > 60 ml/min 02/10/19 06:54 BUN/Creatinine Ratio 20 % 02/10/19 06:54 Glucose 92 mg/dL (65-100) 02/10/19 06:54 Calcium 7.6 mg/dL (8.4-10.2) L 02/10/19 06:54 Total Bilirubin 2.80 mg/dL (0.1-1.2) H 02/10/19 06:54 AST 107 units/L (5-40) H 02/10/19 06:54 ALT 56 units/L (7-56) 02/10/19 06:54 Alkaline Phosphatase 122 units/L (35-129) 02/10/19 06:54 Troponin T < 0.010 ng/mL (0.00-0.029) 02/08/19 09:34 Total Protein 6.2 g/dL (6.3-8.2) L 02/10/19 06:54 Albumin 3.2 g/dL (3.9-5) L 02/10/19 06:54 Albumin/Globulin Ratio 1.1 % 02/10/19 06:54 HCG, Qual Negative (Negative) 02/08/19 04:36 Blood Type O POSITIVE 02/10/19 08:12 Antibody Screen Negative 02/10/19 08:12 Crossmatch See Detail 02/10/19 08:12 Active Medications - Current Medications Current Medications: Generic Name Dose Route Start Last Admin Trade Name Freq PRN Reason Stop Dose Admin Diphenhydramine HCl 25 mg 02/09/19 03:03 02/09/19 21:57 Benadryl PO 25 mg Q6H PRN Administration Itching Enoxaparin Sodium 40 mg 02/08/19 22:00 02/09/19 21:51 Lovenox SUB-Q 40 mg QDAY@2200 COLBY Administration Sodium Chloride 1,000 mls @ 100 mls/hr 02/08/19 21:00 02/10/19 06:50 Nacl 0.9% 1000 Ml IV 100 mls/hr DIRECT COLBY Administration Sodium Chloride 500 mls @ 0 mls/hr 02/10/19 07:19 Nacl 0.9% 500 Ml IV 02/10/19 18:00 ONCE NR As Directed Sodium Chloride 500 mls @ 0 mls/hr 02/10/19 10:40 Nacl 0.9% 500 Ml IV 02/10/19 18:00 ONCE NR As Directed Ketorolac Tromethamine 30 mg 02/08/19 20:32 02/10/19 06:50 Toradol IV 02/13/19 20:31 30 mg Q6H PRN Administration Pain, Moderate (4-6) Ondansetron HCl 4 mg 02/09/19 03:04 02/09/19 12:47 Zofran IV 4 mg Q8H PRN Administration Nausea And Vomiting Oxycodone/Acetaminophen 2 tab 02/10/19 07:19 Percocet 5/325 PO Q4H PRN Pain, Moderate (4-6)
[2019-02-10] MEDS: LOVENOX SUB-Q SCH (21:13)
[2019-02-10] MEDS: BENADRYL PO PRN (21:19)
[2019-02-11] MEDS: NACL 0.9% 1000 ML 1,000 ML IV SCH (03:59)
[2019-02-11] MEDS: TORADOL IV PRN (04:01)
[2019-02-11 06:16] VITALS: BP 130/67
[2019-02-11 07:19] LABS: Hematocrit 28.4 % (30.3-42.9); Hemoglobin 9.7 gm/dl (10.1-14.3); Mean Corpuscular HGB Conc 34 % (30-34); Mean Corpuscular Volume 100 fl (79-97); Platelet Count 198 K/mm3 (140-440); Red Blood Count 2.83 M/mm3 (3.65-5.03)
[2019-02-11 07:22] LABS: Red Cell Distribution Width 27.4 % (13.2-15.2)
[2019-02-11 08:04] LABS: Band Neutrophils # (Manual) 0.1 K/mm3; Myelocytes # (Manual) 0.1 K/mm3; Total Cells Counted 100
[2019-02-11 08:05] LABS: Hypochromasia Few; Sickle Cells 3+; Target Cells 3+
[2019-02-11 08:06] LABS: Platelet Estimate Consistent w Auto
[2019-02-11 08:07] LABS: Giant Platelets Few
--- NOTE | 2019-02-11 09:40 | Discharge Summary ---
Providers - Providers Date of Admission: 02/08/19 10:22 Attending physician: BEVERLEY LEYVA MD [facility] Reason for admission: Sickle cell pain crisis Condition: Stable Pertinent studies: CXR EKG Hospital course: 38 year old female with past medical history significant for hepatitis C, sickle cell anemia presented to the emergency department complaining of generalized body aches for one week. Patient said the pain is worse in her joints but denied any chest pain, dysuria, fever, chills, cough. Patient was presented to emergency department a week ago and Percocet was given and discharged home. Patient didn't show any improvement and presented back again this morning. Patient said she has history of sickle cell anemia and had many blood transfusions and was taking folic acid at home but is now hydroxyurea. Her cousins have sickle cell anemia. Patient is from [place]. patient was admitted to the floor and was treated for acute sickle cell crisis and showed some improvement. patient hgb dropped to 5.8 and and was transfused with 2 units of blood and hgb is 9.4 this morning and discharged home in a stable condition. I use industrial sales engineer #[id number] and explained at the time of discharge. Patient was hypotensive and was corrected with IVF. Advised to get a PCP. Disposition: DC- TO HOME OR SELFCARE Time spent for discharge: 34 minutes - Discharge Diagnoses (1) Abdominal pain Status: Acute Qualifiers: Abdominal location: left upper quadrant Qualified Code(s): R10.12 - Left upper quadrant pain (2) Hypotension Status: Acute Qualifiers: Hypotension type: unspecified hypotension type Qualified Code(s): I95.9 - Hypotension, unspecified (3) Sickle cell anemia with crisis Status: Acute Core Measure Documentation - Palliative Care Palliative Care/ Comfort Measures: Not Applicable - Core Measures Any of the following diagnoses?: none Exam - Physical Exam Narrative exam: Not in cardiopulmonary distress. The patient appeared well nourished and normally developed. Vital signs as documented. Head exam is unremarkable. No scleral icterus . Neck is without jugular venous distension, thyromegaly, or carotid bruits. Lungs are clear to auscultation. Cardiac exam reveals regular rate and Rhythm. Abdominal exam reveals normal bowel sounds. Extremities are nonedematous and both femoral and pedal pulses are normal. [employer]: Alert and oriented 3. No focal weakness. - Constitutional Vitals: Temp Pulse Resp BP Pulse Ox 98.4 F 66 16 130/67 93 02/11/19 05:25 02/11/19 05:25 02/11/19 05:25 02/11/19 05:25 02/11/19 05:25 Plan Activity: no restrictions Weight Bearing Status: Full Weight Bearing Diet: regular Follow up with: ISA EMERY MD [Primary Care Provider] - 3-5 Days LEXI JENSEN MD [Staff Physician] - 7 Days Prescriptions: Folic Acid [Folvite] 1 mg PO QDAY #30 tablet Oxycodone HCl/Acetaminophen [Percocet 7.5/325 mg] 1 each PO Q6HR PRN #10 tablet PRN Reason: Pain
== END 2019-02-11 11:00 | disposition home or self-care (01) ==
LOC: ED 23:27 → 3A 02-08 10:22
PROVIDERS: ADMIT Internal Medicine; ATTEND Internal Medicine
DX: D57.00 Hb-SS disease with crisis, unspecified (principal); I95.9 Hypotension, unspecified; E86.0 Dehydration; B19.20 Unspecified viral hepatitis C without hepatic coma; R10.9 Unspecified abdominal pain; F17.210 Nicotine dependence, cigarettes, uncomplicated
CPT/HCPCS: 36415; 36430; 76705; 80053; 84484; 84703; 85007; 85018; 85025; 85045; 85660; 86850; 86900; 86901; 86920; 93005; 93010; 96361; 96372; 96374; 96375; 96376; 99284; G0378; J1170; J1200; J1650; J1885; J2405; J7030; J7040; P9016